=== PATIENT | female | born 1955 | race Caucasian/White ===

== ENCOUNTER 2018-11-04 11:19 | Emergency (ER) | payer OTHER ==
[~2018-11-04] VITALS: Ht 162.6 cm; Wt 99.1 kg
[2018-11-04 11:24] VITALS: BP 140/73
--- NOTE | 2018-11-04 11:35 | NUR ---
PT BIB SELF TO THE ED WITH THE CHIEF C/O ANXIETY SINCE ONE MONTH. PT IS NOT UNDER ANY PSYCH CONSULT. THIS IS HER FIRST TIME. NOT TAKING ANY MEDS FOR ANXIETY. PT HAS HX OF BIPOLAR DISORDER AND DM. PT STATES HER HEART BEAT FAST BUT HR IS WNL. VSS. DENIES N/V/D. DENIES OTHER PROBLEM AT THIS TIME.
[2018-11-04] MEDS ORDERED: LORazepam 1 MG TAB PO ONE (12:00)
--- NOTE | 2018-11-04 13:11 | NUR ---
called [facility], THEY WILL COME PICK PT UP NOW.
--- NOTE | 2018-11-04 13:14 | NUR ---
Patient discharged with v/s stable. Written and verbal after care instructions given and explained. Patient verbalized understanding. Ambulatory with steady gait. All questions addressed prior to discharge. Advised to follow up with PMD.
== END 2018-11-04 13:14 | disposition home or self-care (01) ==
LOC: MED 11:19
DX: F41.9 Anxiety disorder, unspecified (principal); F31.9 Bipolar disorder, unspecified; E11.9 Type 2 diabetes mellitus without complications; Z89.429 Acquired absence of other toe(s), unspecified side
CPT/HCPCS: 82948; 99284